=== PATIENT | female | born 1990 | race Hispanic/Latino ===

== ENCOUNTER → 2017-06-29 | Outpatient (CLI) | payer OTHER ==
[~2017-06-29] MED LIST: ISOVUE-370 76% 100ML VIAL (Q9967) As Ordered
== END ==
LOC: M RADPRO 12:10
DX: N97.9 Female infertility, unspecified (principal)
CPT/HCPCS: 58340

== ENCOUNTER → 2017-11-15 | Outpatient (CLI) | payer OTHER ==
[2017-11-15 18:38] LABS: BASO % 0.2 % (0.0-1.0); EOS # 0.2 10^3/uL (0.0-0.50); EOS % 1.5 % (0.0-3.0); HEMATOCRIT 34.7 % (36.0-47.0); HEMOGLOBIN 12.2 g/dl (12.0-15.5); IMMATURE GRANULOCYTE % 0.3 % (0-3.0); LYMPH # 1.9 10^3/uL (1.5-6.5); LYMPH % 18.6 % (24.0-44.0); MEAN CORPUSCULAR HEMOGLOBIN 30.3 pg (27.0-33.0); MEAN CORPUSCULAR HGB CONC 35.2 g/dl (32.0-36.5); MEAN CORPUSCULAR VOLUME 86.3 fl (80.0-96.0); MONO # 0.4 10^3/uL (0.0-0.8); MONO % 4.1 % (0.0-5.0); NEUTROPHILS # 7.5 10^3/uL (1.8-7.7); NEUTROPHILS % 75.3 % (36.0-66.0); PLATELET COUNT, AUTOMATED 299 10^3/uL (150-450); RED BLOOD COUNT 4.02 10^6/uL (4.00-5.40); WHITE BLOOD COUNT 9.9 10^3/uL (4.0-10.0)
[2017-11-16 00:21] LABS: CHLAMYDIA DNA AMPLIFICATION NEGATIVE (NEGATIVE); GC DNA AMPLIFICATION NEGATIVE (NEGATIVE)
[2017-11-17 14:09] LABS: RUBELLA IgG QUALITATIVE IMMUNE (IMMUNE)
[2017-11-20 11:14] LABS: HBsAg Prenatal NEGATIVE (NEGATIVE)
[2017-11-20 11:42] LABS: HEPATITIS C VIRUS ABY INDEX 0.1 INDEX (<0.8)
[2017-11-22 18:24] LABS: HIV 1&2 SCREEN CENTAUR NEGATIVE (NEGATIVE)
== END ==
LOC: M SMT 14:17
DX: Z34.81 Encounter for supervision of other normal pregnancy, first trimester (principal); Z3A.12 12 weeks gestation of pregnancy
CPT/HCPCS: 86762

== ENCOUNTER → 2017-12-06 | Outpatient (REF) | payer OTHER | LOC: M LAB REF 13:16 | DX: O34.211 Maternal care for low transverse scar from previous cesarean delivery (principal) ==

== ENCOUNTER → 2017-12-20 | Outpatient (CLI) | payer OTHER | LOC: M RAD 10:04 | DX: O34.211 Maternal care for low transverse scar from previous cesarean delivery (principal); Z3A.19 19 weeks gestation of pregnancy; O44.42 Low lying placenta NOS or without hemorrhage, second trimester; O32.1XX0 Maternal care for breech presentation, not applicable or unspecified | CPT/HCPCS: 76817 ==

== ENCOUNTER → 2018-01-08 | Outpatient (REF) | payer OTHER | LOC: M LAB REF 12:48 | DX: O34.211 Maternal care for low transverse scar from previous cesarean delivery (principal) ==

== ENCOUNTER → 2018-01-12 | Outpatient (CLI) | payer OTHER | LOC: M RAD 12:52 | DX: Z36.89 Encounter for other specified antenatal screening (principal); Z3A.22 22 weeks gestation of pregnancy | CPT/HCPCS: 76816 ==

== ENCOUNTER → 2018-01-23 | Outpatient (REF) | payer OTHER | LOC: M LAB REF 13:24 | DX: Z34.82 Encounter for supervision of other normal pregnancy, second trimester (principal); Z3A.00 Weeks of gestation of pregnancy not specified ==

== ENCOUNTER → 2018-03-02 | Outpatient (CLI) | payer OTHER ==
[2018-03-02 17:19] LABS: HEMATOCRIT 34.2 % (36.0-47.0); HEMOGLOBIN 11.5 g/dl (12.0-15.5); MEAN CORPUSCULAR HEMOGLOBIN 29.3 pg (27.0-33.0); MEAN CORPUSCULAR HGB CONC 33.6 g/dl (32.0-36.5); MEAN CORPUSCULAR VOLUME 87.2 fl (80.0-96.0); PLATELET COUNT, AUTOMATED 292 10^3/uL (150-450); RED BLOOD COUNT 3.92 10^6/uL (4.00-5.40); WHITE BLOOD COUNT 7.8 10^3/uL (4.0-10.0)
== END ==
LOC: M SMT 13:32
PROVIDERS: ATTEND Advanced Practice Midwife
DX: O34.211 Maternal care for low transverse scar from previous cesarean delivery (principal)

== ENCOUNTER → 2018-04-26 | Outpatient (REF) | payer OTHER ==
[~2018-04-26] MED LIST changes: -ISOVUE-370 76% 100ML VIAL (Q9967) As Ordered; +PRENTAB29 PO; +TYLE325T5 PO; +VALA500T5 PO
== END ==
LOC: M LAB REF 16:56
PROVIDERS: ATTEND Advanced Practice Midwife
DX: O34.211 Maternal care for low transverse scar from previous cesarean delivery (principal); Z3A.00 Weeks of gestation of pregnancy not specified

== ENCOUNTER 2018-05-14 07:30 | Inpatient (IN) | payer OTHER ==
[~2018-05-14] VITALS: Ht 152.4 cm; Wt 81.6 kg
[2018-05-15] VITALS (7 sets, daily range): BP systolic 100–122; BP diastolic 57–80
[2018-05-15 05:52] LABS: HEMATOCRIT 34.8 % (36.0-47.0); HEMOGLOBIN 11.3 g/dl (12.0-15.5); MEAN CORPUSCULAR HEMOGLOBIN 26.9 pg (27.0-33.0); MEAN CORPUSCULAR HGB CONC 32.5 g/dl (32.0-36.5); MEAN CORPUSCULAR VOLUME 82.9 fl (80.0-96.0); PLATELET COUNT, AUTOMATED 314 10^3/uL (150-450); WHITE BLOOD COUNT 10.7 10^3/uL (4.0-10.0)
[2018-05-15] MEDS ORDERED: ceFAZolin 2 GM/D5W 50 ML IV BAG (J0690 PER 500MG) As Ordered ONE (06:43)
[2018-05-15] MEDS ORDERED: BICITRA 30ML SOLN UDC As Ordered ONE (06:43)
[2018-05-15] MEDS ORDERED: LACTATED RINGER'S 1000 ML IV STA (07:05)
[2018-05-15] MEDS ORDERED: LR 1,000 ML IV SCH ×2 (07:05→09:17)
[2018-05-15] MEDS ORDERED: dexameTHASONE 4 MG/ML 1ML VIAL (J1100) As Ordered ONE (07:12)
[2018-05-15] MEDS ORDERED: OXYTOCIN INJ 10 UNITS/ML VIAL (J2590) As Ordered ONE (07:12)
[2018-05-15] MEDS ORDERED: fentaNYL 100 MCG/2 ML INJECTION (J3010) As Ordered ONE (07:12)
[2018-05-15] MEDS ORDERED: ONDANSETRON 4MG/2ML VIAL (J2405) As Ordered ONE (07:12)
[2018-05-15] MEDS ORDERED: MORPHINE PRES-FREE INJ 10 MG/10 ML VIAL (J2274) As Ordered ONE (07:13)
[2018-05-15] MEDS ORDERED: BICITRA 30ML SOLN UDC PO ONE (07:15)
[2018-05-15] MEDS ORDERED: ONDANSETRON 4MG/2ML VIAL (J2405) IV PRN ×3 (07:47→09:30)
[2018-05-15] MEDS ORDERED: METOCLOPRAMIDE INJ 10MG/2ML VIAL (J2765) IV PRN (07:47)
[2018-05-15] MEDS ORDERED: NALBUPHINE HCL 10 MG/ML AMP (J2300) IV PRN ×2 (07:47→09:30)
[2018-05-15] MEDS ORDERED: NALOXONE INJ 0.4 MG/1 ML VIAL (J2310) IV PRN ×2 (07:47)
[2018-05-15] MEDS ORDERED: diphenhydrAMINE INJ 50MG/ML VIAL (J1200) IV PRN (07:47)
[2018-05-15] MEDS ORDERED: ePHEDrine SULFATE 25 MG/5 ML(5MG/ML) SYRINGE As Ordered ONE (07:53)
[2018-05-15] MEDS ORDERED: diphenhydrAMINE INJ 50MG/ML VIAL (J1200) As Ordered ONE (08:53)
[2018-05-15] MEDS ORDERED: OXYTOCIN DRIP 30 UNITS in APPROPRIATE DILUENT 1 EA IV SCH (09:17)
[2018-05-15] MEDS ORDERED: fentaNYL 100 MCG/2 ML INJECTION (J3010) IV PRN (09:30)
[2018-05-15] MEDS ORDERED: MEASLES,MUMPS,RUBELLA VACCINE INJ (MMR-II) (90707) SC SCH (09:30)
[2018-05-15] MEDS ORDERED: RHOGAM 300 MCG (1500 IU) INJ (J2790) IM SCH (09:30)
[2018-05-15] MEDS ORDERED: PROMETHAZINE 25 MG TAB PO PRN (09:30)
[2018-05-15] MEDS ORDERED: MEPERIDINE INJ 25 MG/ML VIAL (J2175) IV PRN (09:30)
[2018-05-15] MEDS ORDERED: PERCOCET 5MG/325MG TAB PO PRN (09:30)
[2018-05-15] MEDS ORDERED: HYDROMORPHONE HCL 0.5 MG/ 0.5 ML SYRINGE (J1170 PER 1) IV PRN (09:30)
--- NOTE | 2018-05-15 09:36 | NUR ---
Operative Note Date of procedure: 05/15/2018 Procedure:, Elective repeat low-transverse section Anesthesia: Spinal with Duramorph Preoperative diagnosis: 39 weeks gestation. History of prior low transverse section, declining trial of labor Postoperative diagnosis: Same as preoperative diagnosis Indication: History of prior low transverse section, full term gestation Primary surgeon: Darvin Bowen D.O., Mia Perales Carrot Buncher: Disha Shaver CNM (essential role in surgical site exposure and assistance with delivery of baby) Estimated blood loss:700 ml IV fluids administered: 2300 ml crystalloid Drains: Torers catheter. Urine output:100 ml Ruffin data: Apgars 9 and 9. Birthweight 3230g, 7lbs 2oz. Preoperative/prophylactic antibiotics: Ancef 2 g IV (given within 30 minutes prior to surgical start time). Intraoperative findings: Cephalic presentation. Minimal intraperitoneal adhesive disease, mainly concentrated along lower uterine segment. Normal appearing adnexa / ovaries bilaterally. Specimen(s): none Procedure: The patient was counseled and consented on the risks, benefits, indications and alternatives of the procedure. Informed consent was obtained and placed in the c [place]. She was taken to the operating room with an IV running. She was placed on the operating table. Spinal anesthesia was administered without any difficulty and found to be adequate. She was placed in the dorsal supine position with a leftward tilt. Sequential compression devices were placed on the lower extremities. A Torres catheter was placed under sterile conditions. She was sterilely prepped and draped. A surgical timeout was performed per protocol. Spinal anesthesia was again found to be adequate. Using the 10 blade a Pfannenstiel incision was performed. The 10 blade was used to dissect down to the level of the rectus sheath fascia. The rectus sheath fas leigh was incised at the midline, and the fascial incision was extended with Encarnacion scissors. Parminder clamps were used to grasp the superior and inferior aspect of the fascial incision and the rectus muscle bellies were dissected off sharply and bluntly. The midline was identified and the rectus muscle bellies were manually . The peritoneum was identified and clamped with hemostats and elevated. The peritoneum was then incised with Metzenbaum scissors. Entry into the intraperitoneal cavity was achieved. The peritoneal opening was extended with manual stretch . There was good visualization of both the bladder and the lower uterine segment. The bladder retractor was placed. The vesicouterine peritoneum was dissected with Metzenbaum scissors and blunt dissection. Bladder retractor was repositioned. A low transverse uterine incision was made with a new 10 blade. The hysterotomy was extended with manual stretch. The amniotic sac was protruding and then artificially ruptured. Clear amniotic fluid was noted. The baby's head delivered through the hysterotomy with ease. The remainder of the body delivered with ease. The cord was doubly clamped and cut and the baby was handed off to awaiting care. See data above. The placenta was manually removed and noted to be fully intact. The uterus was exteriorized. The intrauterine cavity was cleared of all clot and debris with a laparotomy sponge. The hysterotomy was closed with 0 Vicryl in running, locked fashion. A second imbricating closure was performed over the initial layer closure using 0 Vicryl. The hysterotomy was noted to be hemostatic. The posterior cul-de-sac was irrigated and cleared of all clot and debris. The uterus was replaced back into the abdomen. The paracolic gutters were cleared of all clot and debris with damp laparotomy sponges. The hysterotomy is reinspected and noted to be hemostatic. Sponge, needle and instrument counts were correct. The peritoneum was closed with 3-0 Vicryl in running fashion. The rectus muscle bellies were reapproximated with 3-0 Vicryl with a series of interrupted sutures. The rectus muscle bellies were noted to be hemostatic. The fascia was closed with 0 Vicryl in running fashion. Sponge, needle and instrument counts were again correct. The subcutaneous layer was irrigated. Small subcutaneous bleeders were cauterized with Bovie. The subcutaneous layer was reapproximated with 3-0 Vicryl in running fashion. The skin was closed with 3-0 Monocryl in subcuticular fashion. A bandage was placed over the closed incision. The final sponge, instrument and needle count was correct. She tolerated the entire procedure very well. She was transferred to the PACU in good and stable condition. Dr. Darvin Bowen D.O., F.Nicolás.Sebastian.G
[2018-05-15] MEDS: KETOROLAC 30 MG/ML VIAL (J1885) IV SCH ×2 (14:57→21:04)
[2018-05-15] MEDS: DOCUSATE SODIUM 100 MG CAP PO SCH (21:03)
[2018-05-16 02:03] VITALS: BP 101/56
[2018-05-16] MEDS: KETOROLAC 30 MG/ML VIAL (J1885) IV SCH (02:45)
--- NOTE | 2018-05-16 06:20 | NUR ---
Postoperative Day 1 Status post repeat low transverse section, uncomplicated. Subjective Pain is well controlled. Lochia is decreasing and minimal. Voiding spontaneously. Tolerating a regular diet. Ambulating without any assistance. Denies any subjective fever, chills, nausea, vomiting, headache, visual changes, shortness of breath, chest pain. Objective Vitals: Normotensive, normal heart rate, afebrile, adequate urine output. Heart: regular, rate, and rhythm. no murmurs/gallops/rubs Lungs: clear to auscultation bilaterally, no wheezes/crackles/rales/ronchi Abd: soft, nontender, nondistended, uterine fundus is 2cm below umbilicus and firm Incision: clean, dry, intact Ext: no significant edema, nontender, negative Delphine's bilaterally. Assessment/Plan: Postoperative day 1 status post repeat low transverse section. Recovering well. Hemodynamically stable, afebrile, good pain control. -Routine care -Discharge to home tomorrow. -Routine infectious, fever, pain, and bleeding precautions reviewed -Incision/wound care precautions reviewed. Babak Milner.O., F.A.C.O.G.
[2018-05-16] MEDS ORDERED: PERCOCET PO (06:21)
[2018-05-16] MEDS ORDERED: IBUP80TA PO (06:22)
[2018-05-16] MEDS ORDERED: COLA100C5 PO (06:22)
[2018-05-16 06:38] VITALS: BP 113/61
[2018-05-16] MEDS: PERCOCET 5MG/325MG TAB PO PRN ×4 (06:57→20:42)
[2018-05-16 08:01] LABS: HEMATOCRIT 26.6 % (36.0-47.0); HEMOGLOBIN 8.4 g/dl (12.0-15.5); MEAN CORPUSCULAR HEMOGLOBIN 26.7 pg (27.0-33.0); MEAN CORPUSCULAR HGB CONC 31.6 g/dl (32.0-36.5); MEAN CORPUSCULAR VOLUME 84.4 fl (80.0-96.0); PLATELET COUNT, AUTOMATED 247 10^3/uL (150-450); RED BLOOD COUNT 3.15 10^6/uL (4.00-5.40); WHITE BLOOD COUNT 11.7 10^3/uL (4.0-10.0)
[2018-05-16] MEDS ORDERED: INFLUENZA QUADRIVALENT PF VACCINE 0.5ML SYRINGE (90686) IM ONE (09:00)
[2018-05-16 10:00] VITALS: BP 114/57
[2018-05-16] MEDS: PRENATAL VITAMINS CHEWABLE TABLET PO SCH (10:08)
[2018-05-16] MEDS: IBUPROFEN 800 MG TAB PO SCH ×2 (10:09→19:17)
[2018-05-16] MEDS: DOCUSATE SODIUM 100 MG CAP PO SCH ×2 (10:10→20:42)
[2018-05-16 18:34] VITALS: BP 109/61
[2018-05-16 22:24] VITALS: BP 99/55
[2018-05-17] MEDS: PERCOCET 5MG/325MG TAB PO PRN ×2 (01:16→08:09)
[2018-05-17 02:07] VITALS: BP 111/60
[2018-05-17] MEDS: IBUPROFEN 800 MG TAB PO SCH (03:05)
[2018-05-17 06:27] VITALS: BP 117/56
--- NOTE | 2018-05-17 07:16 | DSES ---
DATE OF ADMISSION: 05/15/2018 DATE OF DISCHARGE: 05/17/2018 DISCHARGE DIAGNOSIS: Repeat section postop day #2 stable condition. SURGEON: Dr. Darvin Bowen ADJUNCT INSTRUCTOR IN ECONOMICS: Anneliese Shaver certified nurse press feeder [employer]. HISTORY: Vee is a 27-year-old 2, para 2-0-0-2 now who was admitted for repeat section. Her surgery was uncomplicated. She had an estimated blood loss (EBL) 700 mL. Delivered a live male infant weighing 3230 grams, 7 pounds 2 ounces, 9 and 9. Her postoperative course has been uncomplicated. She had her pain well controlled with oral pain medications. She has been out of bed for self care, chloe care and care. She is ambulating without difficulty, tolerating regular diet and oral fluids. She is voiding without difficulty and passing flatus. Breast-feeding has been initiated and seems to be going well. She does request discharge. OBJECTIVE: Temperature 98, pulse 91, respirations 18, blood pressure (BP) is 117/56 this morning. She is alert and oriented times three. Breasts: Soft, nontender. Nipples intact. No cracks. No bleeding. Abdomen: Fundus firm at U. Her incision with the dressing intact. There is no drainage noted. Perineum is intact. Lochia rubra scant. Preoperative CBC on 05/15/2018 with a hemoglobin 11.3, hematocrit 34.8, platelets 314. Postoperative CBC with a hemoglobin 8.4, hematocrit 26.6, platelets 247. PLAN: Discharge the patient home today. She is to follow up at [facility] for a 2-week incision check and an 8-week visit. Dr. Bowen has E-prescribed her prescriptions for pain medications, which at include Percocet and ibuprofen as directed. I did review discharge instructions that include breast care incision care, chloe care, pelvic rest, activity and lifting restrictions, other danger signs of which to report to her provider as well as access to care. All of the patient's questions have been answered and she is agreeable to today's plan. edited: 05/18/2018 [id number] tkf MTDD
[2018-05-17] MEDS: PRENATAL VITAMINS CHEWABLE TABLET PO SCH (08:08)
[2018-05-17] MEDS: DOCUSATE SODIUM 100 MG CAP PO SCH (08:09)
[2018-05-17] MEDS ORDERED: PERCOCET PO (08:52)
[2018-05-17] MEDS ORDERED: INFLUENZA QUADRIVALENT PF VACCINE 0.5ML SYRINGE (90686) IM ONE (09:00)
== END 2018-05-17 10:55 | disposition home or self-care (01) | DRG 773 ==
LOC: M LDI 05-15 05:01 → M OBS 05-15 11:32
PROVIDERS: ADMIT Obstetrics & Gynecology; ATTEND Obstetrics & Gynecology
PROC: 10D00Z1 Extraction of Products of Conception, Low, Open Approach (ICD-10-PCS; principal; 2018-05-15 07:30)
DX: O34.211 Maternal care for low transverse scar from previous cesarean delivery (principal); Z3A.39 39 weeks gestation of pregnancy; Z37.0 Single live birth

== ENCOUNTER → 2018-09-09 | Outpatient (CLI) | payer OTHER ==
[~2018-09-09] MED LIST changes: +COLA100C5 PO; +IBUP80TA PO; +PERCOCET PO
--- NOTE | 2018-09-09 17:04 | REP ---
Clinical: Trauma. Technique: AP, lateral, bilateral oblique views of the right foot. Findings: No acute fracture dislocation. Skeletal structures, joint spaces, and surrounding soft tissues appear normal. No subcutaneous emphysema or radiodense foreign body. Impression: No acute fracture or dislocation. Electronically Signed by Luis Nelson MD 09/09/2018 04:56 P
== END ==
LOC: M LRY 16:25
PROVIDERS: ATTEND Physician Assistant
DX: S99.921A Unspecified injury of right foot, initial encounter (principal)
CPT/HCPCS: 73630; G0463